=== PATIENT | female | born 1970 | race Caucasian/White ===

== ENCOUNTER 2025-05-18 17:42 | Emergency (ER) | payer OTHER, SELFPAY ==
[2025-05-18 17:46] VITALS: BP 155/82
[2025-05-18 18:26] LABS: Hematocrit 40.1 % (37.0-47.0); Hemoglobin 13.5 g/dL (12.0-16.0); Mean Corp Hgb Conc. 33.7 g/dL (33.0-37.0); Mean Corpuscular Volume 86.1 fL (81.0-99.0); Nucleated Red Blood Cells % 0 %; Platelet Count 268 10^3/uL (130-400); Red Cell Dist. Width 12.1 % (11.5-14.5)
[2025-05-18 18:41] LABS: ALT (SGPT) 27 U/L (0-35); AST (SGOT) 32 U/L (14-36); Albumin 4.7 g/dl (3.5-5.0); Alkaline Phosphatase 87 U/L (38-126); Blood Urea Nitrogen 21 mg/dl (7-17); Calcium 9.5 mg/dl (8.4-10.2); Carbon Dioxide 27 mmol/L (22-30); Chloride 103 mmol/L (98-107); Glucose 96 mg/dl (70-99); Potassium 4.3 mmol/L (3.5-5.1); Sodium 137 mmol/L (135-145); Total Protein 7.3 g/dl (6.3-8.2); eGFR > 60.00
[2025-05-18 18:56] LABS: Troponin I < 0.012 ng/ml
--- NOTE | 2025-05-18 21:12 | ED.GENMED ---
History of Present Illness
General
Chief Complaint: Head Injury
Source: patient
Exam Limitations: none
Time Seen by Provider: 05/18/25 19:47
Nursing documentation reviewed up to this point in time: agreed with
History of Present Illness
History of Present Illness:
55-year-old female presenting to the emergency department after tripping over a dog prior to arrival to [employer]. Fell backward and was explained to her that she was unconscious for about 10 to 15 seconds but she does not have any recollection of
this. She felt well prior to this event and currently feels generally well other than lateral chest wall. Denies any nausea vomiting any ongoing headache any sensitivity to light or noise or nausea.
Review of Systems
Review of Systems
Allergies reviewed?: Yes
All Other Systems: ROS reviewed and negative except as documented in HPI and ROS
Phy Exam
Physical Exam
Physical Exam:
GENERAL: Alert , in no apparent distress
EYE: pupils equal and reactive
NECK: Supple, no significant adenopathy.
ENT: o/p clr, mmm.
CARDIAC: Regular rate and rhythm .
LUNGS: Clear breath sounds bilaterally, no acute respiratory distress, no wheezes/rales/rhonchi
ABDOMEN: Soft, without focal tenderness, no r/g, no cvat
NEUROLOGICAL: Alert and oriented, no focal neuro deficits
SKIN: Warm and dry, skin intact.
MUSCULOSKELETAL: No edema, well perfused.
PSYCH: Normal and appropriate interaction.
Course
Orders/Labs/Results
Orders:
Orders
05/18/25 17:45
CT Head W/o Iv Contrast Urgent
Comment:
Reason For Exam: head strike w/loc
05/18/25 18:03
CBC/With Diff [Complete Blood Count/With Diff] Urgent
CMP [Comprehensive Metabolic Panel] Urgent
05/18/25 18:06
Troponin I Urgent
05/18/25 18:45
CR Ribs-left 3 Vw W/pa Chest Urgent
Comment:
Reason For Exam: fall
05/18/25 20:47
Electrocardiogram (*1) Urgent
Reason for Study: Chest Pain
05/18/25 20:48
EKG- Treatment ONCE
Abnormal Lab Results
05/18/25
18:03
MPV 10.5 H fL
(7.4-10.4)
BUN 21 H mg/dl
(7-17)
05/18/25 18:03
05/18/25 18:03
Vital Signs
Initial and Last Documented VS:
Initial Vital Signs
Temp Pulse Resp BP Pulse Ox
98.4 F 59 15 155/82 99
05/18/25 17:46 05/18/25 17:46 05/18/25 17:46 05/18/25 17:46 05/18/25 17:46
Last Documented Vital Signs
Temp Pulse Resp BP Pulse Ox
98.4 F 59 15 155/82 99
05/18/25 17:46 05/18/25 17:46 05/18/25 17:46 05/18/25 17:46 05/18/25 17:46
MDM/Problems Addressed
MDM/Problems Addressed:
55-year-old female presenting to the emergency department today with concerns after [place] dog [place] apparently hitting the back of her head which was described to her by bystanders and being unconscious for roughly 10
seconds. She otherwise feels well at this point left-sided lateral chest discomfort. She felt well prior to this as well. Vital signs are normal here labs unremarkable EKG normal chest x-ray without signs of emergent injury head CT without
emergent findings. Incidental finding of 2 mm dilated perivascular space was explained to the patient. She will otherwise follow-up return precautions given.
*Pulse Oximetry
SaO2: 99
Oxygen Mode of Delivery: Room air
Patient hypoxic: no (99)
*Critical Care Note
Total Time (30-74mins, 75-104mins- exclusive of procedures): Not Applicable
ED Attending Note
-
Portions of this chart may have been created with voice recognition software.� Occasional wrong word or��sound alike� substitutions may have occurred due to the inherent limitations of voice recognition software.
Discharge Plan
Departure
Patient Disposition: Home (Routine Discharge)
Date of Disposition: 05/18/25
Time of Disposition: 21:14
Patient with high blood pressure during this ER visit?: No
Condition: Good
Covid-19: Not Applicable
Discharge Problem:
Fall, Contusion of rib
Instructions: Contusion (DC)
Referrals:
NONE,* [Family Provider, Internal Medicine]
Cuauhtemoc Mendez MD [Active, Neurology] - Follow up in 5-7 days
Activity Restrictions/Additional Instructions:
You came to the emergency department today with concerns of a fall. Here due to reassuring assessment. Your head CT had an incidental finding of 2 mm dilated perivascular space. Please follow closely with neurology for this. Return for any
worsening, new or concerning symptoms.
Interventions
Interventions:
*Risk Screen - Suicide Last Done: 05/18/25 17:46
*General Assessment Last Done: 05/18/25 17:46
*Neglect/Abuse Screening Last Done: 05/18/25 17:46
*ED COVID-19 Vaccine History Last Done: 05/18/25 17:46
*ED Influenza Vaccine History Last Done: 05/18/25 17:46
Discharge Date and Time
Print Language: SWEDISH
== END 2025-05-18 21:33 | disposition home or self-care (01) ==
LOC: EMR 17:42
PROVIDERS: Emergency Medicine; EMERGENCY PHYSICIAN Student in an Organized Health Care Education/Training Program
DX: S20.212A Contusion of left front wall of thorax, initial encounter (principal); S09.90XA Unspecified injury of head, initial encounter; W01.0XXA Fall on same level from slipping, tripping and stumbling without subsequent striking against object, initial encounter
CPT/HCPCS: 99284; 70450; 71101; 80053; 84484; 85025; 93005